=== PATIENT | female | born 1985 | race Caucasian/White ===

== ENCOUNTER 2024-07-19 09:45 | Outpatient (AMB) | payer BC, SELFPAY ==
--- NOTE | 2024-07-19 10:26 | A.OFFPC_ITS ---
Vital Signs 07/19/24 10:32 Height 5 ft 7 in Weight 228 lb 6 oz BMI 35.8 BP 122/70 Blood Pressure Location Rt brachial Position Sitting Respiration 13 Pulse 71 Pulse Source Pulse Oximeter Temp 98.2 F Temp Source Oral Pulse Oximetry (%) 99 Oxygen Delivery Method Room Air Intake Visit Reasons: GENERAL INTERN/ Est Care Intake Note: new patient to establish care Construction Accountant Required: No Allergies No Known Allergies Allergy (Verified 07/19/24 10:28) Medication List - Last Reconciled 07/19/24 by Maurizio Garcia MD No Known Home Meds Tobacco use date assessed: 07/19/24 Dental Screening Dental Screen Date: 07/19/24 Did you have a dental visit in the last 12 months?: No Did you have a dental problem in the last 6 months where you did not have access to dental care?: No Was dental information given to patient?: Patient has dentist HPI GENERAL INTERN/ Est Care HPI Details New?patient Prior?PCP: Dr Ashleigh Martinez [facility] – [place] Last?office?visit/CPE: 3 yrs ago Acute?issue(s): Ref for poly operator for b/L foot pain in heels. PMHx: Denies SurgHx: Tonsils FHx: Mom: HTN. Dad: Blood clot Leg. SocHx: Nonsmoker. EtOH 1x a month & holidays. No drugs PFSH Medical History (Updated 07/19/24 @ 10:56 by Rishi Baires) No pertinent past medical history Surgical History (Updated 07/19/24 @ 10:32 by Xu Figueroa MA) No pertinent past surgical history Family History Mother Hypertension Social History (Updated 07/19/24 @ 10:30 by Xu Figueroa MA) Household Members: Significant Other Both parents involved: No Caregiver staying overnight: No Housing: House Are you a primary childcare administrator to a significant other at home: No Do you presently have visiting nurse or other home services: No 75 years or older and lives alone: No Alcohol intake: current Alcohol intake frequency: a few times a month Patient Tobacco Use Status: Never used Tobacco e-Cigarette/Vaping Use: Never Used Second Hand Smoke Exposure: No service: No Current occupational status: employed Current occupation: teacher Cognitive needs: No Hearing needs: No Vision needs: Yes (wear glasses) Questionnaire PHQ-9 Over the last 2 weeks, how often have you been bothered by any of the following problems? 1. Little interest or pleasure in doing things: several days 2. Feeling down, depressed, or hopeless: several days 3. Trouble falling or staying asleep, or sleeping too much: several days 4. Feeling tired or having little energy: several days 5. Poor appetite or overeating: not at all 6. Feeling bad about yourself - or that you are a failure or have let yourself or your family down: not at all 7. Trouble concentrating on things, such as reading the newspaper or watching television: not at all 8. Moving or speaking so slowly that other people could have noticed. Or the opposite - being so fidgety or restless that you have been moving around a lot more than usual: not at all 9. Thoughts that you would be better off or of hurting yourself in some way: not at all Total score: 4 80337 - PHQ-9 Billing: Yes Source: Developed by Drs. Doyle Melara, Leticia Morales, Lorenzo Birch and colleagues, with an educational fred from [employer]. Thrive Questionnaire Date Thrive assessed: 07/19/24 I am a: Patient What is your living situation today?: I have a steady place to live Within the past 12 months, did the food you bought not last and you didn't have the money to get more?: Never true Within the past 12 months, did you worry whether your food would run out before you got money to buy more?: Never true Do you have trouble paying for medicines?: No Do you have trouble getting transportation to medical appointments?: No Do you have trouble paying your heating and electricity bill?: No Do you have trouble taking care of your child, family member or friend?: No Do you have trouble with day-to-day activities such as bathing, preparing meals, shopping, managing finances, etc.?: No Are you currently unemployed and looking for a job?: No Are you interested in more education?: No Please select the resources that you would like help with: None Currently or been in a relationship where the following occur: No concerns reported THRIVE Score: 0 AUDIT C Alcohol Use Questionnaire (AUDIT-C) 1. How often do you have a drink containing alcohol?: 2-4 times a month 2. How many drinks containing alcohol do you have on a typical day when you are drinking?: 1 or 2 3. How often do you have six or more drinks on one occasion?: Less than monthly Total Score: 3 LONDON-7 AMB Questionnaire LONDON-7 Date LONDON - 7 assessed: 07/19/24 Feeling nervous, anxious, or on edge: 1 = Several days Not being able to stop or control worryin = Not at all Worrying too much about different things: 1 = Several days Trouble relaxin = Several days Being so restless that it is hard to sit still: 0 = Not at all Becoming easily annoyed or irritable: 1 = Several days Feeling afraid as if something awful might happen: 0 = Not at all Total LONDON-7 score (0-4 normal; 5-9 mild; 10-14 moderate; 15-21 severe): 4 Source: Developed by Drs. Doyle Melara, Leticia Morales, Lorenzo Birch and colleagues, with an educational fred from [employer]. LONDON-7 Assessment Billing LONDON-7 Assessment Tool: LONDON-7 Assessment 49594 Review of Systems Const Denies chills, Denies fatigue, Denies fever(s), Denies headache(s) and Denies weakness ENT Denies dizziness and Denies headache(s) Card Denies chest pain, Denies lightheadedness, Denies dyspnea and Denies other (Palpitations) Resp Denies cough, Denies dyspnea, Denies wheezing and Denies other ( shortness of breath) Musc Denies numbness and Denies tingling Neuro Denies dizziness, Denies headache(s), Denies numbness, Denies tingling, Denies paresthesias and Denies weakness Psych Denies anxiety and Denies depression Endo Denies fatigue Aller/Immun Denies wheezing Physical exam (Primary Care) Vital Signs: Last Vital Signs Temp 98.2 F 07/19/24 10:32 Pulse 71 07/19/24 10:32 Resp 13 07/19/24 10:32 BP 122/70 07/19/24 10:32 Pulse Ox 99 07/19/24 10:32 Oxygen Delivery Method Room Air 07/19/24 10:32 BMI result Body Mass Index 35.8 Tobacco/Smoking Status: Tobacco use Status Tobacco use date assessed 07/19/24 07/19/24 10:34 Patient Tobacco Use Status Never used Tobacco 07/19/24 10:34 e-Cigarette/Vaping Use Never Used 07/19/24 10:34 PHQ-9: PHQ-9 Score PHQ-9: Total score 4 07/19/24 10:53 Thrive Assessment: Date of Thrive Assessment Date Thrive assessed 07/19/24 07/19/24 10:28 Currently or been in a relationship where the following occur: No concerns reported Const General: no acute distress and well developed Nutritional Appearance: well nourished Orientation/consciousness: patient oriented x3 HENMT Head: Yes normocephalic and Yes atraumatic Eyes General: appearance normal, both eyes and all related structures Pupils: Equal, round and reactive pupils present EOM: EOMs intact bilaterally Resp Effort & Inspection: normal respiratory effort Auscultation: clear to auscultation bilaterally Cardio Rate: regular rate Rhythm: regular rhythm Heart sounds: S1 normal heart sound present, S2 normal heart sound present, no gallops, no murmurs and no rubs Neuro General: patient oriented x3 and gait normal Cranial nerves: Yes Equal, round and reactive pupils present Psych Affect: normal affect Coding Level of Care Code New Pt Level 3 (49093) Diagnoses Foot pain M79.673 Laboratory exam ordered as part of routine general medical examination Z00.00 Additional Codes LONDON-7 Assessment Billing - LONDON-7 Assessment Tool: LONDON-7 Assessment 42192 ([id number]) PHQ-9 - 06417 - PHQ-9 Billing: Yes ([id number]) Assessment & Plan Assessment & Plan (1) Foot pain: Code(s): M79.673 - Pain in unspecified foot Category: Medical Plan: Likely?plantar?fasciitis Demonstrated?exercises?for?patient Can?also?use?ice/heat She?declines?p.o.?NSAIDs?but?I?recommended?Aspercreme Need?referral?to?Podiatry?at?patient?request (2) Laboratory exam ordered as part of routine general medical examination: Code(s): Z00.00 - Encounter for general adult medical examination without abnormal findings Category: Medical Plan: Check?labs Orders: Orders Comprehensive [place]. Panel Fast Today Z00.00 - Encounter for general adult medical examination without abnormal findings Lipid Panel Today Z00.00 - Encounter for general adult medical examination without abnormal findings TSH reflex Free T4 Today Z00.00 - Encounter for general adult medical examination without abnormal findings Microalbumin, Random (w Creat) Today I10 - Essential (primary) hypertension UA and rflx microscopic Today Z00.00 - Encounter for general adult medical examination without abnormal findings Referrals Podiatry Referral M79.749 - Pain in unspecified foot
[2024-07-19 10:32] VITALS: BP 122/70; PULSE 71; RESP 13; TEMP 36.8; O2SAT 99; BMI 35.8
== END 2024-07-19 12:38 | disposition home or self-care (01) ==
PROVIDERS: PCP Family Medicine; Visit Provider Family Medicine
DX: M79.673 Pain in unspecified foot (principal); Z00.00 Encounter for general adult medical examination without abnormal findings

== ENCOUNTER → 2024-07-19 09:45 | Outpatient (BNVA) | payer BC, SELFPAY | PROVIDERS: Visit Provider Family Medicine | DX: M79.673 Pain in unspecified foot (principal) | CPT/HCPCS: 96127 ==

== ENCOUNTER 2025-05-29 15:47 | Outpatient (AMB) | payer BC, SELFPAY ==
--- NOTE | 2025-05-29 16:01 | MHC.PC.OV ---
Vital Signs 05/29/25 16:03 Height 5 ft 7 in Weight 233 lb BMI 36.5 BP 118/84 Blood Pressure Location Rt brachial Position Sitting Respiration 14 Pulse 82 Pulse Source Pulse Oximeter Temp 98.7 F Temp Source Oral Pulse Oximetry (%) 98 Oxygen Delivery Method Room Air Intake Visit Reasons: Follow Up Derm. Intake Note: Follow up Aboriginal Education Teacher Required: No Allergies No Known Allergies Allergy (Verified 05/29/25 16:03) Tobacco use date assessed: 05/29/25 Dental Screening Dental Screen Date: 05/29/25 Did you have a dental visit in the last 12 months?: Yes Did you have a dental problem in the last 6 months where you did not have access to dental care?: No Was dental information given to patient?: Patient has dentist HPI Follow Up Derm. HPI Details 40 y/o female presents to f/u dermatology. Also presents for a physical. Has complaints of a plantar fasciitis. Has her first mammogram scheduled. HPI Comments History of Present Illness Details Documentation assistance for Maurizio Garcia MD, was provided by Rishi Baires,? Home Improvement Advisor on 05/29/2025 at 4:29 PM EST. I, Dr. Garcia, have read, observed, and verified documentation. ? [facility] Medical History (Updated 05/29/25 @ 16:27 by Rishi Baires) No pertinent past medical history Surgical History (Updated 07/19/24 @ 10:32 by Xu Figueroa MA) No pertinent past surgical history Family History Mother Hypertension Social History (Updated 07/19/24 @ 10:30 by Xu Figueroa MA) Household Members: Significant Other Both parents involved: No Caregiver staying overnight: No Housing: House Are you a primary intensive care specialist to a significant other at home: No Do you presently have visiting nurse or other home services: No 75 years or older and lives alone: No Alcohol intake: current Alcohol intake frequency: a few times a month Patient Tobacco Use Status: Never used Tobacco e-Cigarette/Vaping Use: Never Used Second Hand Smoke Exposure: No service: No Current occupational status: employed Current occupation: teacher Current occupational exposures/hazards: No Cognitive needs: No Hearing needs: No Vision needs: Yes (wear glasses) Questionnaire PHQ-9 Over the last 2 weeks, how often have you been bothered by any of the following problems? 1. Little interest or pleasure in doing things: not at all 2. Feeling down, depressed, or hopeless: not at all 3. Trouble falling or staying asleep, or sleeping too much: more than half the days 4. Feeling tired or having little energy: several days 5. Poor appetite or overeating: not at all 6. Feeling bad about yourself - or that you are a failure or have let yourself or your family down: not at all 7. Trouble concentrating on things, such as reading the newspaper or watching television: not at all 8. Moving or speaking so slowly that other people could have noticed. Or the opposite - being so fidgety or restless that you have been moving around a lot more than usual: not at all 9. Thoughts that you would be better off or of hurting yourself in some way: not at all Total score: 3 Source: Developed by Drs. Doyle Melara, Leticia Morales, Lorenzo Birch and colleagues, with an educational fred from [email or web address]. Thrive Questionnaire Date Thrive assessed: 07/19/24 I am a: Patient What is your living situation today?: I have a steady place to live Within the past 12 months, did the food you bought not last and you didn't have the money to get more?: Never true Within the past 12 months, did you worry whether your food would run out before you got money to buy more?: Never true Do you have trouble paying for medicines?: No Do you have trouble getting transportation to medical appointments?: No Do you have trouble paying your heating and electricity bill?: No Do you have trouble taking care of your child, family member or friend?: No Do you have trouble with day-to-day activities such as bathing, preparing meals, shopping, managing finances, etc.?: No Are you currently unemployed and looking for a job?: No Are you interested in more education?: No Please select the resources that you would like help with: None Currently or been in a relationship where the following occur: No concerns reported THRIVE Score: 0 AUDIT C Alcohol Use Questionnaire (AUDIT-C) 1. How often do you have a drink containing alcohol?: 2-4 times a month 2. How many drinks containing alcohol do you have on a typical day when you are drinking?: 3 or 4 3. How often do you have six or more drinks on one occasion?: Less than monthly Total Score: 4 LONDON-7 AMB Questionnaire LONDON-7 Date LONDON - 7 assessed: 07/19/24 Feeling nervous, anxious, or on edge: 0 = Not at all Not being able to stop or control worryin = Not at all Worrying too much about different things: 0 = Not at all Trouble relaxin = Not at all Being so restless that it is hard to sit still: 0 = Not at all Becoming easily annoyed or irritable: 1 = Several days Feeling afraid as if something awful might happen: 0 = Not at all Total LONDON-7 score (0-4 normal; 5-9 mild; 10-14 moderate; 15-21 severe): 1 Source: Developed by Drs. Doyle Melara, Leticia Morales, Lorenzo Birch and colleagues, with an educational fred from [email or web address]. Review of Systems Const Denies chills, Denies fatigue, Denies fever(s), Denies headache(s) and Denies weakness Eyes Denies change in vision ENT Denies dizziness and Denies headache(s) Card Denies dyspnea Resp Denies cough, Denies dyspnea, Denies wheezing and Denies other (shortness of breath) GI Denies abdominal pain, Denies melena, Denies hematochezia, Denies change in bowel habits, Denies dyspepsia and Denies nausea Denies hematuria and Denies dysuria Musc Denies numbness and Denies tingling Skin/Breast Denies rash, Denies unusual bruising and Denies wounds Neuro Denies dizziness, Denies headache(s), Denies numbness, Denies Sensory deficit (Neuro), Denies tingling and Denies weakness Psych Denies anxiety and Denies depression Endo Denies fatigue Moises/Lymph Denies easy bleeding and Denies easy bruising Aller/Immun Denies wheezing Physical exam (Primary Care) Vital Signs: Last Vital Signs Temp 98.7 F 05/29/25 16:03 Pulse 82 05/29/25 16:03 Resp 14 05/29/25 16:03 BP 118/84 05/29/25 16:03 Pulse Ox 98 05/29/25 16:03 Oxygen Delivery Method Room Air 05/29/25 16:03 BMI result Body Mass Index 36.5 Tobacco/Smoking Status: Tobacco use Status Tobacco use date assessed 05/29/25 05/29/25 16:06 Patient Tobacco Use Status Never used Tobacco 05/29/25 16:06 e-Cigarette/Vaping Use Never Used 05/29/25 16:06 PHQ-9: PHQ-9 Score PHQ-9: Total score 3 05/29/25 16:19 Thrive Assessment: Date of Thrive Assessment Date Thrive assessed 07/19/24 05/29/25 16:06 Currently or been in a relationship where the following occur: No concerns reported Const General: well developed; No acute distress Nutritional Appearance: well nourished and obese Orientation/consciousness: patient oriented x3 HENMT Head: Yes normocephalic and Yes atraumatic Ears: hearing grossly normal bilaterally and TM's normal bilaterally General nose exam: Normal external nose present and Normal nares present Mouth: Normal oral and palatal mucosa present and moist mucous membranes Teeth and gingiva: dentition normal Throat: Yes posterior oropharynx normal Eyes General: appearance normal, both eyes and all related structures Pupils: Equal, round and reactive pupils present EOM: EOMs intact bilaterally Neck Neck: Yes normal visual inspection, Yes no lymphadenopathy and Yes trachea midline Thyroid: Thyroid normal Carotids: no bruits Lymphatic: no lymphadenopathy noted Chest Chest palpation & inspection: normal inspection of the chest Resp Effort & Inspection: normal respiratory effort Auscultation: clear to auscultation bilaterally Cardio Rate: regular rate Rhythm: regular rhythm Heart sounds: S1 normal heart sound present, S2 normal heart sound present, no gallops, no murmurs and no rubs Bruits: no abdominal aortic bruits and no carotid bruits GI Palpation (GI): No Abdominal aortic bruit present, Soft to palpation, nontender, No hepatosplenomegaly present and No Rebound tenderness present Auscultation: normal bowel sounds General: Yes no CVA tenderness Back/Spine/Pelvis Back: no CVA tenderness Cervical Spine: cervical ROM normal and No Cervical spine tenderness Thoracic/Lumbar Spine: thoraco-lumbar ROM normal, No pain with thoraco-lumbar ROM, No thoracic spinal tenderness and No lumbar spinal tenderness Skin Lesions: no lesions Rashes: no rashes Trauma: no lacerations or abrasions Wounds: no wounds Nails: normal Neuro General: patient oriented x3 and gait normal Cranial nerves: Yes Equal, round and reactive pupils present Cognition (Neuro): normal cognition Gait exam (Neuro): Normal gait present Motor exam (neuro): 5/5 motor strength present throughout Sensory Exam: No Sensory deficit (Neuro) Deep tendon reflexes (DTR's): Right patellar reflex intensity grade: 2+ and Left patellar reflex intensity grade: 2+ Extrem General: Yes normal to inspection and No edema Psych Appearance: grossly normal Affect: normal affect Attitude: cooperative Thought process: Normal thought process present Coding Level of Care Code Est Pt Level 3 (85001) Est Pt Prev Care 40-64y(10429) Diagnoses Adult general medical exam Z00.00 Screening for cervical cancer Z12.4 Breast cancer screening by mammogram Z12.31 Plantar fasciitis M72.2 Assessment & Plan Assessment & Plan (1) Adult general medical exam: Code(s): Z00.00 - Encounter for general adult medical examination without abnormal findings Category: Medical Plan: 40-year-old female presents for complete physical exam Exam within normal limits Encouraged healthy diet with active lifestyle and plenty of exercise (2) Screening for cervical cancer: Code(s): Z12.4 - Encounter for screening for malignant neoplasm of cervix Category: Medical Plan: Followed by her mercury cell cleaner and says she is due for Pap smear next year Up-to-date (3) Breast cancer screening by mammogram: Code(s): Z12.31 - Encounter for screening mammogram for malignant neoplasm of breast Category: Medical Plan: Patient has her 1st mammogram scheduled. Ordered by her mercury cell cleaner Asked her to have the imaging suite forward the report to me as well. (4) Plantar fasciitis: Code(s): M72.2 - Plantar fascial fibromatosis Category: Medical Plan: History of plantar fasciitis Currently well controlled with yoga and shoe inserts. Continue the above and if worsens start stretching exercises that we reviewed again today. If it persists we can also refer her to Podiatry at [facility] [place] and patient agrees.
[2025-05-29 16:03] VITALS: BP 118/84; PULSE 82; RESP 14; TEMP 37.1; O2SAT 98; BMI 36.5
--- OUTSIDE RECORDS SUMMARY | 2025-05-29 18:07 | XMS_ITS | Clinical Summary ---
Author Organization [facility] Address [address] [id number] Care Team Providers Care Excavation Laborer Name Role Phone Angy Rahman MD Primary Care Provider + [phone] Allergies No known active allergies Medications Medication Sig Dispensed Refills Start Date End Date Status Cyanocobalamin (VITAMIN B-12 PO) Take by mouth. 0 Active vitamin D3 (VITAMIN D3) 25 MCG (1000 UT) tablet Take 1,000 Units by mouth daily. 0 Active Fe Orpwdr-Pkna-R-Thre-B12- FA (IRON 13/03 PO) Take by mouth. 0 Act britney Active Problems Problem Noted Date Diagnosed Date Class 2 obesity due to exces s calories without serious comorbidity with body mass index (BMI) of 36.0 to 36.9 in adult 11/29/2021 Weight gain 11/29/2021 History of cervical dysplasia 11/29/2021 Immunity status testing 03/22/2019 Encounter for surveillance of contraceptive pill s 02/14/2016 Encounter for routine gynecological examination 06/21/2015 Cervical cancer screening 06/21/2015 Resolved Problems Problem Noted Date Diagnosed Date Resolved Date Class 1 obesity due to exces s calories without serious comorbidity with body mass index (BMI) of 34.0 to 34.9 in adult 05/21/202103/2022 Class 1 obesity due to exces s calories without serious comorbidity with body mass index (BMI) of 33.0 to 33.9 in adult 11/27/2020 Class 2 obesity due to exces s calories without serious comorbidity with body mass index (BMI) of 35.0 to 35.9 in adult 03/22/201909/2019 Class 1 obesity due to exces s calories without serious comorbidity with body mass index (BMI) of 34.0 to 34.9 in adult 09/27/2018 Morbid obesity due to excess calories 09/25/2017 09/27/2018 Obese 02/14/2016 09/27/2018 Urine frequency 06/21/2015 09/27/2018 Family History Medical History Relation Name Comments Blood Clots Father Hypertension Mother Relation Name Status Comments Father Alive Mother Alive Social History Tobacco Use Types Packs/Day Years Used Date Smoking Tobacco: Never Smokeless Tobacco: Never Tobacco Cessation:Counseling Given: No Alcohol Use Standard Drinks/Week Comments Yes 1 (1 standard drink = 0.6 oz pur e alcohol) occ Sex and Gender Information Value Date Recorded Sex Assigned at Female 09/27/2018 3:47 PM EST Gender Identity Female 09/27/2018 3:47 PM EST Sexual Orientation Straight 09/27/2018 3: 47 PM EST Job Start Date Occupation Industry Not on file Not on file Not on file Last Filed Vital Signs Vital Sign Reading Time Taken Comments Blood Pressure 121/77 11/29/2021 4:37 PM EDT Pulse - - Temperature 36.5 C (97.7 F) 11/29/2021 4:37 PM EDT Respiratory Rate - - Oxygen Saturation - - Inhaled Oxygen Concentration - - Weight 105.7 kg (233 lb) 11/29/2021 4:37 PM EDT Height 170.2 cm (5' 7 ) 11/29/2021 4:37 PM EDT Body Mass Index 36.49 11/29/2021 4:37 PM EDT Plan of Treatment Health Maintenance Due Date Last Done Comments Hepatitis B Vaccines (1 of 3 - 3-dose series) 1985 Hepatitis C Screening 1985 COVID-19 Vaccine (#1) 1985 DTap / Tdap / Td (1 - Tdap) 2004 BMI Counseling 11/29/2022 11/29/2021, 04/25, 11/27/2020, Additional history exists Depression Screening 11/29/2022 11/29/2021, 11/27/2020, 11/24/2019 Preventative Health Evaluation 11/29/2022 11/29/2021, 11/27/2020, 11/24/2019, Additional history exists Cervical Cancer Screening (Pap Smear) 11/29/2024 11/29/2021, 09/27/2018, 06/21/2015 Influenza Vaccine (#1) 2025 Pneumococcal Vaccine Aged Out No long er eligible based on patient's age to complete this topic RSV Ped < 20 months Aged Out No longe r eligible based on patient's age to complete this topic Care Teams Excavation Laborer Relationship Specialty Start Date End Date Angy Rahman MD [address] [place] [address] PCP - General Family Medicine 11/24/19
== END 2025-05-29 16:31 | disposition home or self-care (01) ==
LOC: HO.HMCFM 15:48
PROVIDERS: PCP Family Medicine; Visit Provider Family Medicine
DX: Z00.00 Encounter for general adult medical examination without abnormal findings (principal); Z12.31 Encounter for screening mammogram for malignant neoplasm of breast; M72.2 Plantar fascial fibromatosis

== ENCOUNTER 2025-06-29 08:10 | Outpatient (REF) | payer BC, SELFPAY ==
[2025-06-29 11:44] LABS: Appearance Urine Turbid; Glucose Urine UA Negative (Negative); PH 5.5 (5.0-9.0); Specific Gravity - Urine 1.025 (1.005-1.025); UMIC TRIGGER UA YES
[2025-06-29 11:50] LABS: Alanine Aminotransferase 35 U/L (0-31); Albumin Level 4.0 g/dL (3.5-5.0); Alkaline Phosphatase 85 U/L (39-117); Anion Gap 9 (12-20); Aspartate Amino Transferase 33 U/L (5-31); Blood Urea Nitrogen 11 mg/dL (9-16); Calcium 8.5 mg/dL (8.4-10.2); Carbon Dioxide 26 mmol/L (22-29); Chloride 110 mmol/L (96-108); Cholesterol 175 mg/dL (<200); Estimated Glomerular Filt Rate > 60; HDL Cholesterol 40 mg/dL (>40); Potassium 4.5 mmol/L (3.3-5.1); Sodium 140 mmol/L (135-145); Total Protein 6.9 g/dL (6.5-8.0); Triglycerides 124 mg/dL (<150)
[2025-06-29 12:16] LABS: Microalbum/Creatinine Ratio Ur 7.9 ug/mg cr (<30)
== END 2025-06-29 08:11 | disposition home or self-care (01) ==
LOC: HO.WFDLDS 08:10
PROVIDERS: Visit Provider Family Medicine
DX: Z00.00 Encounter for general adult medical examination without abnormal findings (principal); I10 Essential (primary) hypertension
CPT/HCPCS: 36415; 80053; 80061; 81001; 82043; 82570; 84443

== ENCOUNTER 2025-07-03 15:41 | Outpatient (AMB) | payer BC, SELFPAY ==
--- NOTE | 2025-07-03 15:39 | A.OFFPC_ITS ---
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 Labs drawn 06/29/25. Reviewed labs with pt. Elevated liver enzymes - AST 33, ALT 35. Triglycerides 124. TC 175. LDL 111. HDL 40. TSH 1.36 uIU/mL. [facility] Medical History (Updated 07/03/25 @ 16:37 by Rishi Baires) No pertinent past medical history Surgical History (Updated 07/19/24 @ 10:32 by Xu Figueroa MA) No pertinent past surgical history Family History Mother Hypertension Social History (Updated 07/19/24 @ 10:30 by Xu Figueroa MA) Household Members: Significant Other Both parents involved: No Caregiver staying overnight: No Housing: House Are you a primary critical care physician assistant to a significant other at home: No Do you presently have visiting nurse or other home services: No 75 years or older and lives alone: No Alcohol intake: current Alcohol intake frequency: a few times a month Patient Tobacco Use Status: Never used Tobacco e-Cigarette/Vaping Use: Never Used Second Hand Smoke Exposure: No service: No Current occupational status: employed Current occupation: teacher Current occupational exposures/hazards: No Cognitive needs: No Hearing needs: No Vision needs: Yes (wear glasses) Questionnaire Thrive Questionnaire Date Thrive assessed: 07/19/24 L[place]-7 AMB Questionnaire LONDON-7 Date LONDON - 7 assessed: 07/19/24 Source: Developed by Drs. Doyle Melara, Leticia Morales, Lorenzo Birch and colleagues, with an educational fred from [email or web address]. Review of Systems Const Denies chills, Denies fatigue, Denies fever(s), Denies headache(s) and Denies weakness ENT Denies dizziness and Denies headache(s) Card Denies dyspnea Resp Denies cough, Denies dyspnea, Denies wheezing and Denies other (shortness of breath) Musc Denies numbness and Denies tingling Neuro Denies dizziness, Denies headache(s), Denies numbness, Denies tingling and Denies weakness Psych Denies anxiety and Denies depression Endo Denies fatigue Aller/Immun Denies wheezing Physical exam (Primary Care) Tobacco/Smoking Status: Tobacco use Status Tobacco use date assessed 05/29/25 07/03/25 15:40 Patient Tobacco Use Status Never used Tobacco 07/03/25 15:40 e-Cigarette/Vaping Use Never Used 07/03/25 15:40 Thrive Assessment: Date of Thrive Assessment Date Thrive assessed 07/19/24 07/03/25 15:40 Telehealth Telehealth Telehealth Platform: Telephone Location of provider rendering services: practice address Location of patient: address on file Patient Identification confirmed using: Name, : Yes Telehealth method: voice only Patient verbally consented to treatment: Yes Patient verbally consented to billing insurance company: Yes Patient informed of any privacy concerns related to visit: Yes Minutes spent on Phone/Video with Pt.: 6 Coding Level of Care Code Tele Est Pt Level 2 (31007) Diagnoses Elevated liver enzymes R74.8 Elevated LDL cholesterol level E78.00 Assessment & Plan Assessment & Plan (1) Elevated liver enzymes: Code(s): R74.8 - Abnormal levels of other serum enzymes Category: Medical Plan: Mildly elevated liver enzymes. Encouraged weight loss, good hydration and avoidance of Tylenol and alcohol Will recheck in a few months. If liver enzymes are the same or higher will check ultrasound (2) Elevated LDL cholesterol level: Code(s): E78.00 - Pure hypercholesterolemia, unspecified Category: Medical Plan: LDL cholesterol is a little too high Encouraged in diet low in saturated fats and cholesterol as well as weight loss Will recheck with next blood draw Plan Patient also had some RBCs in her urine test but she notes that she was on her period. Will recheck this as well Orders: Orders Comprehensive [place]. Panel Fast Today R74.8 - Abnormal levels of other serum enzymes, Z00.00 - Encounter for general adult medical examination without abnormal findings Lipid Panel Today E78.00 - Pure hypercholesterolemia, unspecified, Z00.00 - Encounter for general adult medical examination without abnormal findings UA CC w/rflx Micro + Cult Today Z00.00 - Encounter for general adult medical examination without abnormal findings
== END 2025-07-03 17:05 | disposition home or self-care (01) ==
LOC: HO.HMCFM 15:41
PROVIDERS: PCP Family Medicine; Visit Provider Family Medicine
DX: R74.01 Elevation of levels of liver transaminase levels (principal); E78.00 Pure hypercholesterolemia, unspecified